=== PATIENT | male | born 1940 | race Caucasian/White ===

== ENCOUNTER 2017-12-08 22:30 | Observation (INO) | payer OTHER, MEDICARE ==
[~2017-12-08] VITALS: Ht 185.4 cm; Wt 90.8 kg
[~2017-12-08 22:30] MED LIST: ASPI325 PO; ATOR10 PO; CIPR500 PO; CLOP75 PO; HYDR1TAB94 PO; METO50ER PO; PANT40 PO; SENN187 PO; TAMS.4ER PO; Vitamin B-650 MG PO
[2017-12-08] MEDS ORDERED: LISI5 PO (22:42)
[2017-12-08 22:49] LABS: BASOPHILS ABSOLUTE AUTO 0.06 K/mm3 (0.00-0.23); BASOPHILS PERCENT AUTO 1 % (0-2); EOSINOPHILS ABSOLUTE AUTO 0.26 K/mm3 (0.00-0.68); EOSINOPHILS PERCENT AUTO 3 % (0-6); Hematocrit 35.9 % (37.0-53.0); Hemoglobin 12.5 g/dL (13.5-17.5); IMMATURE GRAN ABSOLUTE AUTO 0.13 K/mm3 (0.00-0.10); IMMATURE GRAN PERCENT AUTO 1 % (0-1); LYMPHOCYTES ABSOLUTE AUTO 2.39 K/mm3 (0.84-5.20); LYMPHOCYTES PERCENT AUTO 27 % (21-46); MONOCYTES ABSOLUTE AUTO 0.83 K/mm3 (0.16-1.47); MONOCYTES PERCENT AUTO 9 % (4-13); Mean Corpuscular HGB 33.9 pg (26.0-34.0); Mean Corpuscular HGB Conc 34.8 g/dL (31.5-36.5); Mean Corpuscular Volume 97 fL (80-100); Mean Platelet Volume 10.7 fL (9.1-12.4); NEUTROPHILS ABSOLUTE AUTO 5.33 K/mm3 (1.96-9.15); NEUTROPHILS PERCENT AUTO 59 % (41-73); Platelet Count 182 K/mm3 (150-400); RDW Coefficient Variation 14.4 % (11.7-14.2); RDW Standard Deviation 51.3 fL (35.1-46.3); Red Blood Cell Count 3.69 M/mm3 (4.30-5.90)
[2017-12-08 23:04] LABS: International Normalized Ratio 1.04; Prothrombin Time Results 10.7 Sec (9.7-11.5)
[2017-12-08 23:08] LABS: Alanine Aminotransfer (ALT/SGP 21 U/L (12-78); Albumin, Blood 2.9 g/dL (3.4-5.0); Albumin/Globulin Ratio 0.8 (0.8-1.8); Alk Phos 69 U/L (50-136); Anion Gap 12 mmol/L (6-16); Aspartate Aminotrans (AST/SGOT 11 U/L (12-37); Bilirubin, Total 0.3 mg/dL (0.1-1.0); Blood Urea Nitrogen 20 mg/dL (8-24); Bun/Creatinine Ratio 25.2 (12.0-20.0); CO2, Blood 19 mmol/L (21-32); Calcium, Blood 7.9 mg/dL (8.5-10.1); Chloride, Blood 113 mmol/L (98-108); Creatinine, Blood 0.79 mg/dL (0.60-1.20); Globulin, Blood 3.6 g/dL (2.2-4.0); Glomerular Filtration Rate >60 (60-); Glucose, Blood 135 mg/dL (70-99); Potassium, Blood 3.9 mmol/L (3.5-5.5); Sodium, Blood 144 mmol/L (136-145); Total Protein, Blood 6.5 g/dL (6.4-8.2); Troponin I <0.015 ng/mL (0.000-0.040)
[2017-12-09 00:01] LABS: Source, Urine Catheter
[2017-12-09 00:06] LABS: Bilirubin, Urine Neg (Neg); Blood, Urine 2+ (Neg); Glucose Qualitative, Urine Neg (Neg); Ketones, Urine Neg (Neg); Leukocyte Esterase, Urine 1+ (Neg); Nitrite, Urine Pos (Neg); Protein, Urine 2+ (Neg); Urobilinogen, Urine NORM (Normal)
[2017-12-09 00:09] LABS: Appearance, Urine Hazy (Clear); Color, Urine Yellow (P-Yellow)
[2017-12-09 00:11] LABS: White Blood Cells, Urine 50-100 /hpf (0-5)
[2017-12-09 00:12] LABS: Amorphous Light (0-Heavy); Bacteria Many /hpf; Red Blood Cells, Urine Rare /hpf (0-2); Squamous Epithelial Cells Few /hpf (Few)
[2017-12-09] MEDS ORDERED: CHOL10002 PO (00:22)
[2017-12-09 07:08] LABS: Hematocrit 36.7 % (37.0-53.0); Hemoglobin 12.8 g/dL (13.5-17.5); Mean Corpuscular HGB 33.9 pg (26.0-34.0); Mean Corpuscular HGB Conc 34.9 g/dL (31.5-36.5); Mean Corpuscular Volume 97 fL (80-100); Mean Platelet Volume 10.8 fL (9.1-12.4); Platelet Count 179 K/mm3 (150-400); RDW Coefficient Variation 14.4 % (11.7-14.2); RDW Standard Deviation 51.1 fL (35.1-46.3); Red Blood Cell Count 3.78 M/mm3 (4.30-5.90); White Blood Cell Count 9.39 K/mm3 (4.00-11.30)
[2017-12-09 07:38] LABS: CPK Creatine Kinase 66 U/L (39-308); Troponin I <0.015 ng/mL (0.000-0.040)
[2017-12-09 07:39] LABS: Alanine Aminotransfer (ALT/SGP 19 U/L (12-78); Albumin/Globulin Ratio 0.9 (0.8-1.8); Alk Phos 70 U/L (50-136); Anion Gap 8 mmol/L (6-16); Aspartate Aminotrans (AST/SGOT 13 U/L (12-37); Bilirubin, Total 0.4 mg/dL (0.1-1.0); Blood Urea Nitrogen 18 mg/dL (8-24); Bun/Creatinine Ratio 24.7 (12.0-20.0); CO2, Blood 23 mmol/L (21-32); Calcium, Blood 8.2 mg/dL (8.5-10.1); Chloride, Blood 112 mmol/L (98-108); Creatinine, Blood 0.73 mg/dL (0.60-1.20); Globulin, Blood 3.4 g/dL (2.2-4.0); Glomerular Filtration Rate >60 (60-); Glucose, Blood 90 mg/dL (70-99); Potassium, Blood 4.2 mmol/L (3.5-5.5); Sodium, Blood 143 mmol/L (136-145); Total Protein, Blood 6.4 g/dL (6.4-8.2)
[2017-12-09 15:51] LABS: Troponin I 0.026 ng/mL (0.000-0.040)
== END 2017-12-11 10:40 | disposition short-term general hospital (02) ==
LOC: ER 22:30 → ICUW 22:31 → PCU 22:31 → ICUE 22:31 → ER 22:31 → PCU 12-09 00:02 → ICUE 12-09 00:06 → ICUW 12-09 00:06 → ICUE 12-09 14:49 → PCU 12-09 14:49 → ER 12-09 14:50 → ICUE 12-09 14:50 → PCU 12-09 14:50 → ICUE 12-09 14:50 → PCU 12-09 16:50 → ICUE 12-09 16:50 → PCU 12-09 16:51
PROVIDERS: Emergency Medicine; Internal Medicine
DX: I44.2 Atrioventricular block, complete (principal); N40.0 Benign prostatic hyperplasia without lower urinary tract symptoms; I10 Essential (primary) hypertension; I67.9 Cerebrovascular disease, unspecified; Z72.89 Other problems related to lifestyle; Z79.02 Long term (current) use of antithrombotics/antiplatelets; Z79.899 Other long term (current) drug therapy; Z87.891 Personal history of nicotine dependence; Z51.81 Encounter for therapeutic drug level monitoring
CPT/HCPCS: 33208; 36415; 36416; 51702; 71045; 71046; 80053; 81001; 82550; 83735; 83880; 84484; 85025; 85027; 85610; 85730; 87077; 87086; 87186; 93005; 93010; 93308; 93321; 96361; 96365; 96367; 96374; 96375; 96376; 99152; 99153; 99285-25; C1785; C1898; G0378; J0461; J0690; J0696; J1644; J2060; J2250; J3010; J3411; J3480; J7030; J7040; Q9967

== ENCOUNTER 2019-01-25 13:17 | Emergency (ER) | payer OTHER, MEDICARE ==
[~2019-01-25] VITALS: Ht 182.9 cm; Wt 95.2 kg
[~2019-01-25 13:17] MED LIST changes: +CHOL10002 PO; +LISI5 PO
[2019-01-25 13:47] LABS: BASOPHILS ABSOLUTE AUTO 0.05 K/mm3 (0.00-0.23); BASOPHILS PERCENT AUTO 1 % (0-2); EOSINOPHILS ABSOLUTE AUTO 0.21 K/mm3 (0.00-0.68); EOSINOPHILS PERCENT AUTO 2 % (0-6); Hematocrit 40.6 % (37.0-53.0); IMMATURE GRAN ABSOLUTE AUTO 0.11 K/mm3 (0.00-0.10); IMMATURE GRAN PERCENT AUTO 1 % (0-1); LYMPHOCYTES ABSOLUTE AUTO 2.26 K/mm3 (0.84-5.20); LYMPHOCYTES PERCENT AUTO 25 % (21-46); MONOCYTES ABSOLUTE AUTO 0.89 K/mm3 (0.16-1.47); MONOCYTES PERCENT AUTO 10 % (4-13); Mean Corpuscular HGB 33.2 pg (26.0-34.0); Mean Corpuscular HGB Conc 34.5 g/dL (31.5-36.5); Mean Corpuscular Volume 96 fL (80-100); Mean Platelet Volume 11.1 fL (9.1-12.4); NEUTROPHILS ABSOLUTE AUTO 5.57 K/mm3 (1.96-9.15); NEUTROPHILS PERCENT AUTO 61 % (41-73); Platelet Count 212 K/mm3 (150-400); RDW Coefficient Variation 14.7 % (11.7-14.2); RDW Standard Deviation 51.2 fL (35.1-46.3); Red Blood Cell Count 4.22 M/mm3 (4.30-5.90); White Blood Cell Count 9.09 K/mm3 (4.00-11.30)
[2019-01-25 14:04] LABS: Ethanol (Alcohol), Blood, Med <3 mg/dL
[2019-01-25 14:05] LABS: Alanine Aminotransfer (ALT/SGP 22 U/L (12-78); Albumin, Blood 3.5 g/dL (3.4-5.0); Albumin/Globulin Ratio 0.9 (0.8-1.8); Alk Phos 79 U/L (50-136); Anion Gap 7 mmol/L (6-16); Aspartate Aminotrans (AST/SGOT 19 U/L (12-37); Bilirubin, Total 0.7 mg/dL (0.1-1.0); Blood Urea Nitrogen 15 mg/dL (8-24); Bun/Creatinine Ratio 18.2 (12.0-20.0); CO2, Blood 23 mmol/L (21-32); Calcium, Blood 9.1 mg/dL (8.5-10.1); Chloride, Blood 109 mmol/L (98-108); Creatinine, Blood 0.82 mg/dL (0.60-1.20); Glomerular Filtration Rate >60 (60-); Glucose, Blood 100 mg/dL (70-99); Potassium, Blood 4.1 mmol/L (3.5-5.5); Sodium, Blood 139 mmol/L (136-145); Total Protein, Blood 7.5 g/dL (6.4-8.2)
[2019-01-25 14:06] LABS: International Normalized Ratio 1.03; Prothrombin Time Results 10.9 Sec (9.7-11.5)
[2019-01-25 14:50] LABS: Source, Urine Catheter
[2019-01-25 15:06] LABS: Appearance, Urine Clear (Clear); Bilirubin, Urine Neg (Neg); Blood, Urine 1+ (Neg); Color, Urine Yellow (P-Yellow); Glucose Qualitative, Urine Neg (Neg); Ketones, Urine Neg (Neg); Leukocyte Esterase, Urine 3+ (Neg); Nitrite, Urine Pos (Neg); Protein, Urine Neg (Neg); Urobilinogen, Urine NORM (Normal); pH, Urine 6.5 (5.0-8.0)
[2019-01-25 15:13] LABS: Red Blood Cells, Urine 0-2 /hpf (0-2)
[2019-01-25 15:14] LABS: Bacteria Many /hpf; Squamous Epithelial Cells Few /hpf (Few)
[2019-01-25 15:19] LABS: U Amphetamine Screen Not Detected; U Barbituate Screen Not Detected; U Benzodiazapine Screen Not Detected; U Buprenorphine Screen Not Detected; U Cannabinoids Screen Not Detected; U Cocaine Screen Not Detected; U Methadone Screen Not Detected; U Methamphetamine Screen Not Detected; U Opiates Screen Not Detected; U Oxycodone Screen Not Detected; U Phencyclidine Screen Not Detected; U Propoxyphene Screen Not Detected
[2019-01-25] MEDS ORDERED: CEPH500 PO (15:32)
== END 2019-01-25 16:11 | disposition home or self-care (01) ==
LOC: ER 13:17
PROVIDERS: Physician Assistant
DX: N39.0 Urinary tract infection, site not specified (principal); G45.9 Transient cerebral ischemic attack, unspecified; Z79.899 Other long term (current) drug therapy; Z79.82 Long term (current) use of aspirin; I10 Essential (primary) hypertension
CPT/HCPCS: 36415; 70450; 80053; 81001; 85025; 85610; 85730; 87077; 87086; 87186; 93005; 93010; 96365; 99284-25; G0480; J0696

== ENCOUNTER 2023-10-16 17:53 | Observation (INO) | payer OTHER ==
[~2023-10-16] VITALS: Ht 182.9 cm; Wt 93.0 kg
[2023-10-16] VITALS (9 sets, daily range): BP systolic 77–157; BP diastolic 50–95
[~2023-10-16 17:53] MED LIST changes: +CEPH500 PO; +LOPE2C PO; +ONDA4ODT MM
[2023-10-16 18:21] LABS: BASOPHILS ABSOLUTE AUTO 0.05 K/mm3 (0.00-0.23); BASOPHILS PERCENT AUTO 1 % (0-2); EOSINOPHILS ABSOLUTE AUTO 0.23 K/mm3 (0.00-0.68); EOSINOPHILS PERCENT AUTO 2 % (0-6); Hematocrit 39.9 % (37.0-53.0); Hemoglobin 14.1 g/dL (13.5-17.5); IMMATURE GRAN ABSOLUTE AUTO 0.09 K/mm3 (0.00-0.10); IMMATURE GRAN PERCENT AUTO 1 % (0-1); LYMPHOCYTES ABSOLUTE AUTO 2.24 K/mm3 (0.84-5.20); LYMPHOCYTES PERCENT AUTO 23 % (21-46); MONOCYTES ABSOLUTE AUTO 0.97 K/mm3 (0.16-1.47); MONOCYTES PERCENT AUTO 10 % (4-13); Mean Corpuscular HGB 34.5 pg (26.0-34.0); Mean Corpuscular HGB Conc 35.3 g/dL (31.5-36.5); Mean Corpuscular Volume 98 fL (80-100); Mean Platelet Volume 10.9 fL (9.1-12.4); NEUTROPHILS PERCENT AUTO 64 % (41-73); Platelet Count 216 K/mm3 (150-400); RDW Standard Deviation 53.4 fL (35.1-46.3); Red Blood Cell Count 4.09 M/mm3 (4.30-5.90); White Blood Cell Count 9.88 K/mm3 (4.00-11.30)
[2023-10-16 18:48] LABS: Albumin, Blood 3.4 g/dL (3.4-5.0); Albumin/Globulin Ratio 0.8 (0.8-1.8); Bilirubin, Total 0.5 mg/dL (0.1-1.0); Bun/Creatinine Ratio 18.8 (12.0-20.0); Creatinine, Blood 0.85 mg/dL (0.60-1.20); Globulin, Blood 4.1 g/dL (2.2-4.0); Total Protein, Blood 7.5 g/dL (6.4-8.2)
[2023-10-16] MEDS ORDERED: Midazolam HCl 1MG / ML 2ML Vial ONE ×3 (19:16→20:26)
[2023-10-16] MEDS ORDERED: FentaNYL Citrate 50 MCG/ML 2 ML Injection ONE (19:16)
[2023-10-16] MEDS ORDERED: NS 250 ML IV ONE (19:16)
[2023-10-16] MEDS ORDERED: NS 1,000 ML IV ONE (19:17)
[2023-10-16] MEDS ORDERED: Heparin Sodium 1000 Units/ML 10ML MDV ONE (19:17)
[2023-10-16] MEDS ORDERED: propofoL 100 ML IV SCH (20:20)
[2023-10-16] MEDS ORDERED: NS 1,000 ML IV SCH (20:35)
[2023-10-16] MEDS ORDERED: Ondansetron HCl 2 MG / ML 2ML Vial IV PRN (20:35)
[2023-10-16] MEDS ORDERED: Cetylpyridinium Chloride 1 EA MISC MT SCH ×2 (20:40→20:55)
[2023-10-16] MEDS ORDERED: propofoL 100 ML IV PRN (20:55)
[2023-10-16] MEDS ORDERED: SuccINYLCHOLINE Chloride 100 MG/5 ML 5MLSYR IV ONE (21:08)
[2023-10-16] MEDS ORDERED: Ketamine HCl 100 MG / ML 5ML Vial IM ONE (21:08)
[2023-10-16 21:33] LABS: Source, Urine Foley catheter
[2023-10-16 21:42] LABS: Bilirubin, Urine Neg (Neg); Blood, Urine Neg (Neg); Glucose Qualitative, Urine Neg (Neg); Ketones, Urine Neg (Neg); Leukocyte Esterase, Urine 3+ (Neg); Nitrite, Urine Pos (Neg); Protein, Urine 1+ (Neg); Urobilinogen, Urine NORM (Normal); pH, Urine 6.5 (5.0-8.0)
--- NOTE | 2023-10-16 21:48 | NUR ---
ARRIVAL TO ICU: PT ARRIVED TO ICU FROM [facility] AT [address] MARTINEZ AT BEDSIDE WITH PT. PER DR. MARTINEZ: MONITOR O2 PLETH HAS GOOD WAVEFORM AND DOCUMENT PULSE FROM O2 WAVEFORM RATHER THAN ECG STRIP DUE TO PT INTERNAL PACEMAKER MALFUNCTION. VERBAL ORDER TO CALL IF HEART RATE DROPS BELOW 50. TEMP PACER IN PT RIGHT GROIN, SUTURED, DRESSING C/D/I. SETTINGS AT 58 BPM, OUTPUT 10, SENSE 2.0. PT HR CURRENTLY 70'S/ 100 % PACED ON BLACK AND WHITE PRINTER OPERATOR. SBP 80'S-90'S STABLE, MAP >65. PT INTUBATED AND SEDATED UPON ARRIVAL. VENT SETTINGS AC/VC+, 16/500/5/50%. SPO2 >90%. LUNGS COARSE WITH SMALL AMOUNT OF SECRETIONS. OGT CLAMPED. PT HAS STRONG RADIAL PULSES, PEDAL PULSES CAN BE HEARD WITH DOPPLER. PUPILS EQUAL, NON-REACTIVE. PT MOVING ALL EXTREMETIES BUT NOT FOLLOWING ANY COMMANDS YET. WHITE INSERTED, PATENT AND DRAINING TO GRAVITY. PROPOFOL INFUSING AT 30 MCG/KG/MIN. NS AT 75 ML/HR. PIVS INTACT, 20G TO RW, 20G LAC. PT AWAITING TRANSFER TO [facility]. BED LOW AND LOCKED.
[2023-10-16 22:02] LABS: Appearance, Urine Hazy (Clear); Color, Urine Yellow (P-Yellow)
[2023-10-16 22:03] LABS: Bacteria Many /hpf; Red Blood Cells, Urine Not Seen /hpf (0-2); Squamous Epithelial Cells Not Seen /hpf (Few); White Blood Cells, Urine 50-100 /hpf (0-5)
--- NOTE | 2023-10-16 22:04 | NUR ---
BELONGINGS: PT SON AT THE BEDSIDE, UPDATED TO PLAN OF CARE FOR PT TO TRANSFER TO [facility]. SON TOOK ALL OF PTS BELONGINGS HOME INCLUDING PT CELLPHONE. 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
--- NOTE | 2023-10-16 22:54 | NUR ---
TRANSFER TO [facility]: PT TRANSFERRED TO [facility] WITH [facility] AT [id number]. PT HEARING AIDS SENT WITH PT, NO OTHER BELONGINGS IN ROOM. REPORT CALLED TO LAINE WALTERS AT [id number].
[2023-10-17] MEDS ORDERED: Hydrogen Peroxide 1.5 % Solution MT SCH ×2
== END 2023-10-16 22:37 | disposition short-term general hospital (02) ==
LOC: ER 17:53 → ICUE 17:54
PROVIDERS: Emergency Medicine; ADMIT Internal Medicine
DX: T82.110A Breakdown (mechanical) of cardiac electrode, initial encounter (principal); R42 Dizziness and giddiness; I10 Essential (primary) hypertension; E78.5 Hyperlipidemia, unspecified; N40.0 Benign prostatic hyperplasia without lower urinary tract symptoms; K21.9 Gastro-esophageal reflux disease without esophagitis; K44.9 Diaphragmatic hernia without obstruction or gangrene; Z86.73 Personal history of transient ischemic attack (TIA), and cerebral infarction without residual deficits; Z79.82 Long term (current) use of aspirin; Z79.01 Long term (current) use of anticoagulants; Z79.899 Other long term (current) drug therapy; Z88.8 Allergy status to other drugs, medicaments and biological substances
CPT/HCPCS: 31500; 33210; 51702; 71045; 76937; 80053; 81001; 83735; 85025; 94002; 99152; 99285-25; C1894; J0330; J1644; J2250; J2704; J3010; J7030; J7050

== ENCOUNTER 2025-04-18 11:58 | Inpatient (IN) | payer OTHER ==
[~2025-04-18] VITALS: Ht 182.9 cm; Wt 98.5 kg
[2025-04-18 12:41] LABS: BASOPHILS ABSOLUTE AUTO 0.03 K/mm3 (0.00-0.23); BASOPHILS PERCENT AUTO 1 % (0-2); EOSINOPHILS ABSOLUTE AUTO 0.06 K/mm3 (0.00-0.68); EOSINOPHILS PERCENT AUTO 1 % (0-6); Hematocrit 34.0 % (37.0-53.0); Hemoglobin 11.9 g/dL (13.5-17.5); IMMATURE GRAN ABSOLUTE AUTO 0.04 K/mm3 (0.00-0.10); IMMATURE GRAN PERCENT AUTO 1 % (0-1); LYMPHOCYTES ABSOLUTE AUTO 1.04 K/mm3 (0.84-5.20); LYMPHOCYTES PERCENT AUTO 16 % (21-46); MONOCYTES ABSOLUTE AUTO 1.19 K/mm3 (0.16-1.47); MONOCYTES PERCENT AUTO 19 % (4-13); Mean Corpuscular HGB Conc 35.0 g/dL (31.5-36.5); Mean Corpuscular Volume 97 fL (80-100); NEUTROPHILS ABSOLUTE AUTO 4.01 K/mm3 (1.96-9.15); NEUTROPHILS PERCENT AUTO 63 % (41-73); NRBC ABSOLUTE 0.00 K/mm3 (0.00-0.02); NRBC Auto 0.0 /100 WBC (0.0-0.2); Platelet Count 187 K/mm3 (150-400); RDW Coefficient Variation 14.8 % (11.7-14.2); RDW Standard Deviation 52.8 fL (35.1-46.3)
[2025-04-18 13:07] LABS: Source, Urine Clean Catch
[2025-04-18 13:12] LABS: Bilirubin, Urine Neg (Neg); Color, Urine Brown (P-Yellow); Glucose Qualitative, Urine Neg (Neg); Ketones, Urine Neg (Neg); Leukocyte Esterase, Urine 2+ (Neg); Protein, Urine 2+ (Neg); Specific Gravity, Urine 1.020 (1.003-1.022); Urobilinogen, Urine 1+ (Normal)
[2025-04-18 13:21] LABS: Alanine Aminotransfer (ALT/SGP 28.0 U/L (12-78); Albumin, Blood 3.0 g/dL (3.4-5.0); Albumin/Globulin Ratio 0.7 (0.8-1.8); Anion Gap 11.0 mmol/L (3-11); Aspartate Aminotrans (AST/SGOT 44.0 U/L (12-37); Bilirubin, Total 0.7 mg/dL (0.1-1.0); Blood Urea Nitrogen 40.0 mg/dL (8-24); CO2, Blood 20.0 mmol/L (21-32); Calcium, Blood 8.8 mg/dL (8.5-10.1); Chloride, Blood 108.0 mmol/L (98-108); Creatinine, Blood 1.72 mg/dL (0.60-1.20); Globulin, Blood 4.1 g/dL (2.2-4.0); Glucose, Blood 141.0 mg/dL (70-99); Potassium, Blood 4.5 mmol/L (3.5-5.5); Sodium, Blood 134.0 mmol/L (136-145); Total Protein, Blood 7.1 g/dL (6.4-8.2)
[2025-04-18 13:39] LABS: Red Blood Cells, Urine 25-50 /hpf (0-2)
[2025-04-18] MEDS ORDERED: NS 1,000 ML IV SCH ×2 (14:10→17:25)
[2025-04-18] MEDS ORDERED: CIPR500 PO (15:59)
[2025-04-18] MEDS ORDERED: ONDA4ODT MM (15:59)
[2025-04-18] MEDS ORDERED: Aspir 8181 MG PO (16:29)
[2025-04-18] MEDS ORDERED: LOSA50 PO (16:29)
[2025-04-18] MEDS ORDERED: ATOR40TA PO (16:29)
[2025-04-18] MEDS ORDERED: FAMO40 PO (16:29)
[2025-04-18] MEDS ORDERED: NORVASC5 MG PO (16:30)
[2025-04-18] MEDS ORDERED: BENZ100A PO (16:32)
[2025-04-18] MEDS ORDERED: FLU VACC TS2025(65UP)/MF59C/PF 45 MCG/0.5 ML SYRINGE IM SCH (17:45)
--- NOTE | 2025-04-18 19:23 | NUR ---
RECEIVED REPORT FROM ED RN MITA. PT ADMITTED FOR HELENA. PT WILL BE TRANSFERRED TO MEDICAL FLOOR RM [id number].
[2025-04-18 19:43] VITALS: BP 142/71
[2025-04-18] MEDS ORDERED: MULTIPLE VITAM1 EACH PO (20:54)
[2025-04-18] MEDS ORDERED: CefTRIAXone Sodium 1,000 MG in NS 100 ML IV SCH (21:33)
[2025-04-18] MEDS ORDERED: NS 250 ML IV PRN (21:50)
--- NOTE | 2025-04-19 02:41 | NUR ---
SHIFT SUMMARY NEW ADMIT AT BEGINNING OF SHIFT FOR HELENA/UTI. ALERT AND ORIENTED. PLEASANT AND COOPERATIVE WITH CARES. ABLE TO MAKE NEEDS KNOWN. SBA WITH HIS CANE. R HAND PIV RUNNING LR @ 100 ML/HR. ON ROOM AIR. HX BPH AND URINARY RETENTION FOR WHICH HE STRAIGHT CATHS TWICE DAILY. ORDERS IN PLACE FOR SELF CATHETERIZATION WITH ADMITTED. REG DIET. VSS. BED IN LOWEST POSITION. CALL LIGHT IN REACH.
[2025-04-19 04:12] VITALS: BP 128/66
[2025-04-19 06:00] LABS: BASOPHILS ABSOLUTE AUTO 0.03 K/mm3 (0.00-0.23); BASOPHILS PERCENT AUTO 1 % (0-2); EOSINOPHILS ABSOLUTE AUTO 0.17 K/mm3 (0.00-0.68); EOSINOPHILS PERCENT AUTO 3 % (0-6); Hematocrit 31.7 % (37.0-53.0); Hemoglobin 11.0 g/dL (13.5-17.5); IMMATURE GRAN ABSOLUTE AUTO 0.03 K/mm3 (0.00-0.10); IMMATURE GRAN PERCENT AUTO 1 % (0-1); LYMPHOCYTES ABSOLUTE AUTO 1.25 K/mm3 (0.84-5.20); LYMPHOCYTES PERCENT AUTO 21 % (21-46); MONOCYTES ABSOLUTE AUTO 1.08 K/mm3 (0.16-1.47); MONOCYTES PERCENT AUTO 18 % (4-13); Mean Corpuscular HGB Conc 34.7 g/dL (31.5-36.5); Mean Corpuscular Volume 98 fL (80-100); NEUTROPHILS ABSOLUTE AUTO 3.31 K/mm3 (1.96-9.15); NEUTROPHILS PERCENT AUTO 56 % (41-73); NRBC ABSOLUTE 0.00 K/mm3 (0.00-0.02); NRBC Auto 0.0 /100 WBC (0.0-0.2); Platelet Count 165 K/mm3 (150-400); RDW Coefficient Variation 14.8 % (11.7-14.2); RDW Standard Deviation 53.1 fL (35.1-46.3)
[2025-04-19 06:22] LABS: Alanine Aminotransfer (ALT/SGP 25.0 U/L (12-78); Albumin, Blood 2.7 g/dL (3.4-5.0); Albumin/Globulin Ratio 0.8 (0.8-1.8); Anion Gap 10.0 mmol/L (3-11); Aspartate Aminotrans (AST/SGOT 24.0 U/L (12-37); Bilirubin, Total 0.4 mg/dL (0.1-1.0); Blood Urea Nitrogen 35.0 mg/dL (8-24); CO2, Blood 21.0 mmol/L (21-32); Calcium, Blood 8.6 mg/dL (8.5-10.1); Chloride, Blood 112.0 mmol/L (98-108); Creatinine, Blood 1.39 mg/dL (0.60-1.20); Globulin, Blood 3.6 g/dL (2.2-4.0); Glucose, Blood 121.0 mg/dL (70-99); Potassium, Blood 3.8 mmol/L (3.5-5.5); Sodium, Blood 139.0 mmol/L (136-145); Total Protein, Blood 6.3 g/dL (6.4-8.2)
[2025-04-19 07:26] VITALS: BP 127/58
--- NOTE | 2025-04-19 07:38 | NUR ---
PT PREPPING OF SELF STRAIGHT CATH. INQUIRED ABOUT "IODINE WIPES". THIS RN ASKED AROUND STAFF FOR SUPPLIES. ONLY COULD FIND BOTTLE OF IODINE AND STERILE GAUZE. ATTEMPTED TO EDUCATED PT THAT WAS ALL THIS RN COULD FIND. PT REFUSED TO USE MATERIALS SUPPLIED BY THIS RN BY SAYING "NO NO NO, DONT EVEN BOTHER WITH IT".
[2025-04-19] MEDS ORDERED: Enoxaparin 40 MG/0.4 ML SYR SC SCH (09:00)
[2025-04-19] MEDS ORDERED: Lactobacil 2-S.Thermo-Bifido 1 1 Cap PO SCH (09:00)
[2025-04-19] MEDS ORDERED: Polyethylene Glycol 3350 17 gm PO PRN (11:25)
[2025-04-19 14:56] VITALS: BP 133/61
--- NOTE | 2025-04-19 16:34 | NUR ---
SHIFT SUMMARY PT AOX4, COOPERATIVE, ABLE TO MAKE NEEDS KNOWN. PT IS SBA IN ROOM USING CANE. ON ROOM AIR. TOLERATING MEDICATIONS. PT DOES STRAIGHT CATH SELF BID PER PT SCHEDULE. NO OTHER ACUTE EVENTS TOOK PLACE THIS SHIFT. BED IN LOWEST POSITION, CALL LIGHT WITHIN REACH.
[2025-04-19 20:41] VITALS: BP 126/65
[2025-04-19] MEDS ORDERED: Docusate Sodium/Senna 1 Tab PO SCH (21:00)
[2025-04-20 04:57] VITALS: BP 144/62
[2025-04-20 05:30] LABS: Hematocrit 31.4 % (37.0-53.0); Hemoglobin 11.0 g/dL (13.5-17.5); Mean Corpuscular HGB Conc 35.0 g/dL (31.5-36.5); Mean Corpuscular Volume 97 fL (80-100); NRBC ABSOLUTE 0.00 K/mm3 (0.00-0.02); NRBC Auto 0.0 /100 WBC (0.0-0.2); Platelet Count 175 K/mm3 (150-400); RDW Coefficient Variation 14.7 % (11.7-14.2); RDW Standard Deviation 52.7 fL (35.1-46.3)
--- NOTE | 2025-04-20 05:50 | NUR ---
Alert and oriented. Denied sob, cehst pain, n/v, f/c, dizziness, headache and any pain. Patient refused HS Tylenol. Aquired an adequate sleep and reported having an adequate appetite. No distress and acute changes noted during the shift.
--- NOTE | 2025-04-20 06:28 | NUR ---
REACHED OUT TO [facility] TO DETERMINE IF PT'S URINE CULTURE HAD RESULTED, WAS TOLD THAT THEY DO NOT HAVE RESULTS YET. NO ACUTE CHANGES OVERNIGHT PT SELF-CATHS D/T BPH. PT IS PLEASANT USES CALL LIGHT APPROPRIATELY.
[2025-04-20 06:35] LABS: Albumin, Blood 2.7 g/dL (3.4-5.0); Anion Gap 11 mmol/L (3-11); Blood Urea Nitrogen 22 mg/dL (8-24); CO2, Blood 21 mmol/L (21-32); Calcium, Blood 8.5 mg/dL (8.5-10.1); Chloride, Blood 112 mmol/L (98-108); Creatinine, Blood 1.30 mg/dL (0.60-1.20); Glucose, Blood 105 mg/dL (70-99); Magnesium, Blood 2.2 mg/dL (1.6-2.4); Phosphorus, Blood 2.5 mg/dL (2.5-4.9); Potassium, Blood 3.8 mmol/L (3.5-5.5); Sodium, Blood 140 mmol/L (136-145)
[2025-04-20 07:41] VITALS: BP 134/58
[2025-04-20] MEDS ORDERED: Calcium 500 MG/Vit D 200 Units Tab PO SCH (09:00)
[2025-04-20 14:56] VITALS: BP 132/68
--- NOTE | 2025-04-20 16:35 | NUR ---
SHIFT SUMMARY PT AOX4, COOPERATIVE, ABLE TO MAKE NEEDS KNOWN. NO NEW EVENTS TOOK PLACE MUCH LIKE YESTERDAY. TOELRATING MEDICAITONS. AMBULATING IN ROOM USING CANE, AMBULATING IN HALLWAY. DID REFUSE 1600 DOSE TYLENOL STATING "NOT IN PAIN". SELF CATHETERIZING Q12 HR PER PERSONAL SCHEDULE, URINE STILL LOOKING DARK, MD AWARE, ENCOURAGING FLUID INTAKE. [facility] DID SEND UA RESULTS FROM SAMPLE COLLECTED FROM PT [facility] VISIT, INFORMATION IN CHART. ON ROOM AIR. NO OTHER EVETNS TOOK PLACE. PT WAS OFFERED DC TODAY BY , PT OPTED TO STAY ONE MORE NIGHT. BED IN LOWEST POSITION, CALL LIGHT WITHIN REACH.
[2025-04-20 19:15] VITALS: BP 125/66
[2025-04-21 03:55] VITALS: BP 139/64
[2025-04-21] MEDS ORDERED: Albuterol 2.5 MG/3 ML VIAL INH PRN (05:00)
--- NOTE | 2025-04-21 06:19 | NUR ---
SHIFT SUMMARY A&O X4. PT AMBULATING IN ROOM USING CANE. SELF CATHERTERIZING PER PERSONAL SCHEDULE EVERY 12 HOURS, URINE BROWN IN COLOR. THIS SHIFT PT OXYGEN SATURATION DROPPED TO 87% ON RA. EXPIRATORY WHEEZE AUSCULTATED ON EXAM. ENCOURAGE PT TO DEEP BREATH AND COUGH. ELEVATED HOB. PLACED PT ON 3L O2 VIA NC W/ SPO2 93%. CONTACTED DR. LAWRENCE AND RECEIVED ORDERS FOR BD PROTOCOL. PT SPO2 92% ON 1L O2 VIA NC AFTER NEBULIZER TX. PT RESTING IN BED, RESPIRATION EVEN AND UNLABORED. CALL LIGHT WITHIN REACH.
[2025-04-21 07:41] VITALS: BP 134/71
[2025-04-21 14:35] LABS: Hematocrit 31.3 % (37.0-53.0); Hemoglobin 10.9 g/dL (13.5-17.5); Mean Corpuscular HGB Conc 34.8 g/dL (31.5-36.5); Mean Corpuscular Volume 95 fL (80-100); NRBC ABSOLUTE 0.00 K/mm3 (0.00-0.02); NRBC Auto 0.0 /100 WBC (0.0-0.2); Platelet Count 209 K/mm3 (150-400); RDW Coefficient Variation 14.8 % (11.7-14.2); RDW Standard Deviation 51.6 fL (35.1-46.3)
[2025-04-21 14:42] LABS: Anion Gap 11.0 mmol/L (3-11); Blood Urea Nitrogen 21.0 mg/dL (8-24); CO2, Blood 21.0 mmol/L (21-32); Calcium, Blood 8.9 mg/dL (8.5-10.1); Chloride, Blood 110.0 mmol/L (98-108); Creatinine, Blood 1.24 mg/dL (0.60-1.20); Glucose, Blood 122.0 mg/dL (70-99); Potassium, Blood 4.0 mmol/L (3.5-5.5); Sodium, Blood 138.0 mmol/L (136-145)
--- NOTE | 2025-04-21 17:04 | NUR ---
SHIFT SUMMARY A/OX4, IND WITH CANE. PT ON 1L AT BEGINNING OF SHIFT, AUDIBLE WHEEZES. CHEST XR ORDERED, WEANED DOWN TO RA NO WHEEZES NOTED AT THIS TIME. INCENTIVE SPIROMETER ENCOURAGED. PT STRAIGHT CATHS HIMSELF Q12 HRS, 850 OF DARK BROWN URINE OUTPUT THIS SHIFT. RENAL CONSULT PLACED AT REQUEST OF SON. DENIES PAIN/SOB. NO ACUTE CHANGES AT THIS TIME.
[2025-04-21 19:52] VITALS: BP 141/71
[2025-04-21 22:06] LABS: Source, Urine Voided
[2025-04-21 22:14] LABS: Bilirubin, Urine Neg (Neg); Glucose Qualitative, Urine Neg (Neg); Ketones, Urine Neg (Neg); Leukocyte Esterase, Urine Neg (Neg); Protein, Urine 2+ (Neg); Specific Gravity, Urine 1.010 (1.003-1.022); Urobilinogen, Urine NORM (Normal)
[2025-04-21 22:51] LABS: Color, Urine Yellow (P-Yellow)
[2025-04-21 22:52] LABS: Red Blood Cells, Urine 25-50 /hpf (0-2); White Blood Cells, Urine 0-2 /hpf (0-5)
--- NOTE | 2025-04-22 04:18 | NUR ---
END OF SHIFT SUMMARY: AxOx4. DNR. ADMITTED FOR HELENA & UTI. PATIENT IS ON 1L NC. PATIENT SELF CATHS EVERY 12 HOURS. PATIENT IS A 1 PERSON SBA WITH A CANE. PATIENT TAKES MEDS WHOLE WITH FLUIDS. PATIENT IS ABLE TO MAKE NEEDS KNOWN. BED IN LOWEST POSITION. CALL LIGHT WITHIN REACH AND PATIENT HAS BEEN EDUCATED ON HOW TO USE. WILL REPORT TO ONCOMING NURSE.
--- NOTE | 2025-04-22 04:42 | NUR ---
I TOOK REPORT AND ASSUMED CARE OF PT @ 2817.
[2025-04-22 05:33] VITALS: BP 137/71
[2025-04-22 05:49] LABS: Albumin, Blood 2.5 g/dL (3.4-5.0); Anion Gap 9 mmol/L (3-11); Blood Urea Nitrogen 29 mg/dL (8-24); CO2, Blood 21 mmol/L (21-32); Calcium, Blood 8.9 mg/dL (8.5-10.1); Chloride, Blood 113 mmol/L (98-108); Creatinine, Blood 1.20 mg/dL (0.60-1.20); Glucose, Blood 93 mg/dL (70-99); Phosphorus, Blood 3.5 mg/dL (2.5-4.9); Potassium, Blood 4.0 mmol/L (3.5-5.5); Sodium, Blood 139 mmol/L (136-145); Total Iron Binding Capacity 327 ug/dL (250-450)
[2025-04-22 07:51] VITALS: BP 128/81
[2025-04-22 16:00] VITALS: BP 119/60
--- NOTE | 2025-04-22 17:15 | NUR ---
SHIFT SUMMARY PT AOX4, CALLS AND MAKES NEEDS KNOWN. BLADIMIR GALVEZ AT THE BS. NO ACUTE COMPLAINTS. WALKED THE HALLWAYS TODAY WITH HIS CANE AND TOLERATED IT WELL. RA DURING THE DAY, 2L WHILE SLEEPING. PT REQUIRES TWO MORE DAYS OF IV ABX PER DR. PRYOR. PT AND FAMILY MADE AWARE. REPOSITIONS SELF IN BED. PT SELF-CATHS Q12 HOURS, PERSONAL SUPPLIES AT THE BS. NO EVENTS PER TELE. CALL LIGHT WITHIN REACH, BED LOCKED AND IN THE LOWEST POSITION. WILL REPORT TO ONCOMING NURSE.
[2025-04-22 20:08] VITALS: BP 125/73
[2025-04-23 04:19] VITALS: BP 124/60
[2025-04-23 05:20] LABS: Albumin, Blood 2.6 g/dL (3.4-5.0); Anion Gap 7 mmol/L (3-11); Blood Urea Nitrogen 26 mg/dL (8-24); CO2, Blood 24 mmol/L (21-32); Calcium, Blood 8.8 mg/dL (8.5-10.1); Chloride, Blood 111 mmol/L (98-108); Creatinine, Blood 1.13 mg/dL (0.60-1.20); Glucose, Blood 83 mg/dL (70-99); Phosphorus, Blood 3.5 mg/dL (2.5-4.9); Potassium, Blood 4.0 mmol/L (3.5-5.5); Sodium, Blood 138 mmol/L (136-145)
--- NOTE | 2025-04-23 05:39 | NUR ---
SHIFT SUMMARY NOC PT A/O X 4. PLEASANT AND COOPERATIVE WITH CARE. VSS. PT SELF CATHED DURING SHIFT WITH CLEAR YELLOW URINE. PT REMAINS ON 2L/NC FOR SLEEP DUE TO DESAT TO MID TO HIGH 80'S. PT RECEIVED IV ABX PER EMAR. PT HAD C/O OF COUGH AND TESSALON ORDERED AND GIVEN. PT CURRENTLY RESTING WITH BED IN LOWEST POSITION, AND CALL LIGHT WITHIN REACH.
[2025-04-23 07:27] VITALS: BP 131/72
[2025-04-23 15:31] VITALS: BP 151/74
[2025-04-23] MEDS ORDERED: Iron Dextran 50 MG / ML 2ML Vial IV ONE (16:10)
--- NOTE | 2025-04-23 17:28 | NUR ---
SHIFT SUMMARY: A&OX4 THROUGHOUT SHIFT. PLEASANT AND COOPERATIVE WITH CARE. PT AMBULATES INDEPENDENTLY IN ROOM. SELF CATHS TWICE A DAY D/T URINARY RETENTION. NO ACUTE EVENTS THIS SHIFT. VSS. PLAN TO POSSIBLY D/C TOMORROW AFTER LAST ABX DOSE. LYING IN BED AT THIS TIME. BED LOCKED AND IN THE LOWEST POSITION. CALL LT WITHIN REACH.
[2025-04-23] MEDS ORDERED: Iron Dextran 975 MG in NS 250 ML IV ONE (18:00)
[2025-04-23 19:54] VITALS: BP 153/72
--- NOTE | 2025-04-24 04:21 | NUR ---
SHIFT SUMMARY NOC PT A/O X 4. PLEASANT AND COOPERATIVE WITH CARE. VSS. NO ACUTE CHANGES TO REPORT PT RECEIVED INFED AND IV ABX PER EMAR, AND DOSE OF ROCEPHIN FOR TODAY HAS BEEN CHANGED TO [address] DAVILA VERBAL ORDER TO DAY RN. PT PERFORMED SELF STRAIGHT CATH @ 2129. PT EXPECTED TO DISCHARGE HOME TODAY WITH SON LAZARO RIDE HOME. PT CURRENTLY RESTING WITH BED IN LOWEST POSITION, AND CALL LIGHT WITHIN REACH.
[2025-04-24 04:54] VITALS: BP 130/62
[2025-04-24 07:27] VITALS: BP 113/80
[2025-04-24] MEDS ORDERED: CefTRIAXone Sodium 1,000 MG in NS 100 ML IV SCH (12:00)
--- NOTE | 2025-04-24 13:13 | NUR ---
DISCHARGE NOTE: WENT OVER DISCHARGE WITH THE PATIENT AND HIS SON. IV REMOVED. PATIENT GOT HIMSELF DRESSSED AND BELONGINGS COLLECTED. PATIENT DISCHARGE WITH SON. NO SIGNS OR SYMPTOMS OF DISTRESS.
[2025-04-27 23:43] LABS: COMPLEMENT COMPONENT 3 131 mg/dL (90-180); COMPLEMENT COMPONENT 4 28 mg/dL (10-40)
== END 2025-04-24 16:34 | disposition home or self-care (01) | DRG 699 ==
LOC: ER 11:58 → MEDS 11:59 → ENPENDDIS 04-24 12:53 → MEDS 04-24 16:34
PROVIDERS: Hospitalist; Internal Medicine; Physician Assistant; ADMIT Family Medicine
DX: T83.518A Infection and inflammatory reaction due to other urinary catheter, initial encounter (principal); N17.9 Acute kidney failure, unspecified; N30.00 Acute cystitis without hematuria; Z16.20 Resistance to unspecified antibiotic; E78.5 Hyperlipidemia, unspecified; N40.1 Benign prostatic hyperplasia with lower urinary tract symptoms; R33.8 Other retention of urine; Z66 Do not resuscitate; Z96.653 Presence of artificial knee joint, bilateral; M21.962 Unspecified acquired deformity of left lower leg; G89.29 Other chronic pain; B96.20 Unspecified Escherichia coli [E. coli] as the cause of diseases classified elsewhere; D63.1 Anemia in chronic kidney disease; N18.31 Chronic kidney disease, stage 3a; I12.9 Hypertensive chronic kidney disease with stage 1 through stage 4 chronic kidney disease, or unspecified chronic kidney disease; F10.20 Alcohol dependence, uncomplicated; K21.9 Gastro-esophageal reflux disease without esophagitis; R09.02 Hypoxemia; M19.072 Primary osteoarthritis, left ankle and foot; Z96.611 Presence of right artificial shoulder joint; Z79.02 Long term (current) use of antithrombotics/antiplatelets; Z23 Encounter for immunization; Z86.73 Personal history of transient ischemic attack (TIA), and cerebral infarction without residual deficits; Z79.82 Long term (current) use of aspirin; Z95.0 Presence of cardiac pacemaker; Z98.890 Other specified postprocedural states; Z90.49 Acquired absence of other specified parts of digestive tract; Z91.048 Other nonmedicinal substance allergy status; Z79.899 Other long term (current) drug therapy; Z79.891 Long term (current) use of opiate analgesic; Z87.891 Personal history of nicotine dependence; Y84.6 Urinary catheterization as the cause of abnormal reaction of the patient, or of later complication, without mention of misadventure at the time of the procedure
CPT/HCPCS: 36415; 71046; 76770; 80048; 80053; 80069; 81001; 82570; 83540; 83550; 83735; 84156; 85025; 85027; 86160; 87086; 94640; 94664; 94760; 94762; 96360; 96361; 96365; 96372; 99284-25; A9270; G0378; J0696; J1650; J1750; J7030; J7050; J7120